=== PATIENT | female | born 1970 | race Caucasian/White ===

== ENCOUNTER 2017-10-03 11:48 | Emergency (ER) | payer BC, OTHER ==
[2017-10-03 12:22] VITALS: PULSE 78; RESP 16
[2017-10-03] MEDS ORDERED: PROPARACAINE 0.5% OPHTH DROPS 15 ML BTL BOTH EYES STA (12:53)
[2017-10-03] MEDS ORDERED: ERYTHROMYCIN 5 MG/GM OPHTH OINT 3.5 GM TUBE BOTH EYES STA (12:53)
[2017-10-03] MEDS ORDERED: CIPROFLOXACIN 0.3% OPHTH SOLN 5 ML BTL BOTH EYES STA (14:18)
--- NOTE | 2017-10-03 14:20 | ED ---
Eye Problem HPI - General Chief complaint: Eye Problems Stated complaint: LEFT EYE PAIN/POSS FB Time Seen by Provider: 10/03/17 12:52 Source: patient, family, RN notes reviewed, old records reviewed Mode of arrival: ambulatory Limitations: no limitations - History of Present Illness Initial comments: This is a 47 year old female with history of contact lens use presents with 1 day of severe left eye pain. Patient reports a few days ago, she thought she may have had a foreign body enter her eye at work. She states that the pain went away shortly afterward. She reports that the pain occured today when she woke up. She reports she took her new contacts out last night and reports she felt like she may of scratched her eye at that time as well. Patient reports severe pressure of the eye. She reports photophobia. She reports headache. - Related Data Home Medications Medication Instructions Recorded Confirmed Arnica 3 tab PO DAILY PRN 10/03/17 10/03/17 Previous Rx's Medication Instructions Recorded Ciprofloxacin Ophth Soln [Cipro 2 drops LEFT EYE Q4HR #1 bottle 10/03/17 Ophth Soln] HYDROcodone/APAP 5-325MG [Harwood 1 tab PO Q6HR PRN #12 tab 10/03/17 5-325] Allergies Allergy/AdvReac Type Severity Reaction Status Date / Time corn Allergy Cough Verified 10/03/17 12:52 Review of Systems ROS Statement: Those systems with pertinent positive or pertinent negative responses have been documented in the HPI. ROS Other: All systems not noted in ROS Statement are negative. Past Medical History Past Medical History: Cancer Additional Past Medical History / Comment(s): Breast CA, History of Any Multi-Drug Resistant Organisms: None Reported Past Surgical History: Section, Cholecystectomy Additional Past Surgical History / Comment(s): bilateral radical Masectomy Past Anesthesia/Blood Transfusion Reactions: No Reported Reaction Additional Past Anesthesia/Blood Transfusion Reaction / Comment(s): Pt has never received blood. Past Psychological History: No Psychological Hx Reported Smoking Status: Former smoker Past Alcohol Use History: None Reported Past Drug Use History: None Reported - Past Family History Father Family Medical History: Myocardial Infarction (ID), Musculoskeletal Disorder, Neurologic Disorder Additional Family Medical History / Comment(s): Father of massive ID's at age 54. He had multiple sclerosis Mother Family Medical History: Hyperlipidemia, Hypertension, Renal Disease, Rheumatoid Arthritis (RA) Additional Family Medical History / Comment(s): Mother is 66yrs old. General Exam - General Exam Comments Initial Comments: This is a 47 year old female, appears in discomfort of left eye. Limitations: no limitations General appearance: alert, in no apparent distress Head exam: Present: atraumatic, normocephalic, normal inspection Eye exam: Present: normal appearance, PERRL, EOMI, conjunctival injection (left eye conjunctival conjunction. ). Absent: scleral icterus, periorbital swelling Pupils: Present: normal accommodation, irregular Expanded Eyelids: Normal Inspection: Bilateral Pupils: Regular, Round: Bilateral, Reactive: Bilateral Sclera/Conjunctival: Normal Inspection: Right, Injection: Left (Appears area of ulceration 1mm large at 2 oclock position. ) Posterior chamber: Deferred: Bilateral IOP (R) in mmH IOP (L) in mmH IOP measured with: Tonopen ENT exam: Present: normal exam, mucous membranes moist Neck exam: Present: normal inspection. Absent: tenderness, meningismus, lymphadenopathy Respiratory exam: Present: normal lung sounds bilaterally. Absent: respiratory distress, wheezes, rales, rhonchi, stridor Cardiovascular Exam: Present: regular rate, normal rhythm, normal heart sounds. Absent: systolic murmur, diastolic murmur, rubs, gallop, clicks GI/Abdominal exam: Present: soft, normal bowel sounds. Absent: distended, tenderness, guarding, rebound, rigid Extremities exam: Present: normal inspection, full ROM, normal capillary refill. Absent: tenderness, pedal edema, joint swelling, calf tenderness Back exam: Present: normal inspection Neurological exam: Present: alert, oriented X3, CN II-XII intact Psychiatric exam: Present: normal affect, normal mood Skin exam: Present: warm, dry, intact, normal color. Absent: rash Course Vital Signs 10/03/17 10/03/17 12:20 14:59 Temperature 99.3 F 97.9 F Pulse Rate 78 78 Respiratory 16 16 Rate Blood Pressure 175/87 128/70 O2 Sat by Pulse 99 98 Oximetry Medical Decision Making - Medical Decision Making This is a 47 year old female with history of contact lens use presents with 1 day of severe left eye pain. Patient reports a few days ago, she thought she may have had a foreign body enter her eye at work. Symptoms started this morning when she awoke. She does have significant conjunctival injection. Pain with photophbia, and consensual light testing. Patient has what appears as small ulceration at 2 o'clock position at iris. Discussed starting appropriate antibiotic drops. Eye pressures are within normal limits. Discused with Dr. Nguyen. Suggest Eye drops and follow up tomorrow with opthalmolgoy. I Suggested to call opthalmology, and Dr. Nguyen reports that patient needs to avoid contact lens use and continue drops. Recommended toradol and pain medication. I was informed that he Did not contact opthalomogy. I discharged patient with cipro drops to use every hour and referral for opthomology. Discussed prompt follow up tomorrow morning. Discussed return parameters. Written off of work. Disposition Clinical Impression: Corneal ulcer of left eye Disposition: HOME SELF-CARE Condition: Good Instructions: Corneal Ulcer (ED) Additional Instructions: Patient needs to follow-up tomorrow morning with ophthalmology. Return to emergency department if any alarming signs or symptoms occur. Prescriptions: Ciprofloxacin Ophth Soln [Cipro Ophth Soln] 2 drops LEFT EYE Q4HR #1 bottle HYDROcodone/APAP 5-325MG [Harwood 5-325] 1 tab PO Q6HR PRN #12 tab PRN Reason: Pain Referrals: Venecia Swanson MD [STAFF PHYSICIAN] - 1-2 days None,Stated [Primary Care Provider] - 1-2 days Time of Disposition: 14:16
[2017-10-03 15:00] VITALS: BP 128/70; TEMP 97.9
== END 2017-10-03 14:59 | disposition home or self-care (01) ==
LOC: EC 11:48
DX: H16.002 Unspecified corneal ulcer, left eye (principal); Z85.3 Personal history of malignant neoplasm of breast; Z87.891 Personal history of nicotine dependence; Z91.018 Allergy to other foods
CPT/HCPCS: 99283

== ENCOUNTER 2022-07-15 08:49 | Day surgery (SDC) | payer OTHER ==
[2022-07-14 08:56] VITALS: BMI 31.2
[~2022-07-15 08:49] MED LIST: LACTATED RINGERS 1,000 ML IV SCH
[2022-07-15 10:06] VITALS: TEMP 97.5
[2022-07-15] MEDS ORDERED: ONDANSETRON 4 MG/2 ML VIAL ONE (10:11)
[2022-07-15] MEDS ORDERED: GLUCAGON 1 MG/ML VIAL ONE (10:45)
[2022-07-15] MEDS ORDERED: PROPOFOL 10 MG/ML 20 ML VIAL IV ONE (10:45)
--- NOTE | 2022-07-15 10:53 | P.GSHP ---
History of Present Illness H&P Date: 07/15/22 Chief Complaint: Screening colonoscopy This a 52-year-old female who presents today for screening colonoscopy. Patient denies a significant GI complaints. Past Medical History Past Medical History: Cancer, Hyperlipidemia, Hypertension, Thyroid Disorder Additional Past Medical History / Comment(s): Hx left breast cancer in 2011. Cholesterol slightly elevated, liver enzymes elevated. Hashimotos. History of Any Multi-Drug Resistant Organisms: None Reported Past Surgical History: Breast Surgery, Section, Cholecystectomy Additional Past Surgical History / Comment(s): Bilateral radical masectomy with reconconstruction, wisdom teeth extracted. Past Anesthesia/Blood Transfusion Reactions: Postoperative Nausea & Vomiting (PONV) Additional Past Anesthesia/Blood Transfusion Reaction / Comment(s): Pt has never received blood. Past Psychological History: No Psychological Hx Reported Smoking Status: Former smoker Past Alcohol Use History: None Reported Additional Past Alcohol Use History / Comment(s): Smoked on and off from age 17 to 2011. Past Drug Use History: None Reported - Past Family History Father Family Medical History: Myocardial Infarction (MS), Musculoskeletal Disorder, Neurologic Disorder Additional Family Medical History / Comment(s): Father of massive MS's at age 54. He had Multiple Sclerosis. Mother Family Medical History: Hyperlipidemia, Hypertension, Renal Disease, Rheumatoid Arthritis (RA) Additional Family Medical History / Comment(s): Mother is 66yrs old. Medications and Allergies Home Medications Medication Instructions Recorded Confirmed Type Losartan [Cozaar] 12.5 mg PO HS 07/14/22 07/15/22 History Allergies Allergy/AdvReac Type Severity Reaction Status Date / Time corn Allergy Cough Verified 07/15/22 10:09 Surgical - Exam Vital Signs Temp Pulse Resp BP Pulse Ox 97.5 F L 66 16 140/72 98 07/15/22 10:04 07/15/22 10:04 07/15/22 10:04 07/15/22 10:04 07/15/22 10:04 - General well developed, well nourished, no distress - Eyes PERRL - ENT normal pinna - Neck no masses - Respiratory normal expansion - Cardiovascular Rhythm: regular - Abdomen Abdomen: soft, non tender Assessment and Plan Assessment: We'll perform screening colonoscopy
--- NOTE | 2022-07-15 11:11 | P.OP ---
Date of Procedure: 07/15/22 Preoperative Diagnosis: Screening colonoscopy Postoperative Diagnosis: Diverticulosis External hemorrhoids Procedure(s) Performed: Colonoscopy Anesthesia: MAC Surgeon: Juan Rodriguez Pathology: none sent Condition: stable Disposition: PACU Description of Procedure: The patient's placed on the endoscopy table in the lateral position. She received IV sedation. Digital rectal exam was performed. This revealed internal and external hemorrhoids. The colonoscope was then placed patient anus and passed throughout the entire colon. The ileocecal valve was visually is. The cecum, ascending and transverse colon appeared normal. In the descending and; extensive diverticular changes. The scope was then brought back the rectum and internal and external hemorrhoids was noted. Scope withdrawn for patient.
[2022-07-15 11:36] VITALS: BP 132/78; PULSE 78; RESP 18
== END 2022-07-15 13:06 | disposition home or self-care (01) ==
LOC: ORWHC2ENDO 08:49
PROVIDERS: ATTEND Surgery
DX: Z12.11 Encounter for screening for malignant neoplasm of colon (principal); K57.30 Diverticulosis of large intestine without perforation or abscess without bleeding; K64.4 Residual hemorrhoidal skin tags; K64.8 Other hemorrhoids; I10 Essential (primary) hypertension; E78.5 Hyperlipidemia, unspecified; E06.3 Autoimmune thyroiditis; Z85.3 Personal history of malignant neoplasm of breast; Z87.19 Personal history of other diseases of the digestive system; Z90.49 Acquired absence of other specified parts of digestive tract; Z98.891 History of uterine scar from previous surgery; Z90.13 Acquired absence of bilateral breasts and nipples; Z98.818 Other dental procedure status; Z87.891 Personal history of nicotine dependence; Z82.49 Family history of ischemic heart disease and other diseases of the circulatory system; Z82.69 Family history of other diseases of the musculoskeletal system and connective tissue; Z82.0 Family history of epilepsy and other diseases of the nervous system; Z83.438 Family history of other disorder of lipoprotein metabolism and other lipidemia; Z84.1 Family history of disorders of kidney and ureter; Z82.61 Family history of arthritis; Z79.811 Long term (current) use of aromatase inhibitors
CPT/HCPCS: 45378; J1610; J2405; J2704